=== PATIENT | male | born 1985 | race Caucasian/White ===

== ENCOUNTER 2021-03-28 13:42 | Emergency (ER) | payer OTHER ==
[~2021-03-28] VITALS: Ht 182.9 cm; Wt 127.0 kg
[2021-03-28 13:48] VITALS: BP_SYST 157
[2021-03-28] MEDS ORDERED: LIDOCAINE 1% 10 MG/ML, 20 ML MDV INJ ONE (14:15)
[2021-03-28] MEDS ORDERED: DIPH-TET-PERTUS Vaccine 0.5 ML VIAL (ADACEL) I.M. ONE (14:15)
[2021-03-28] MEDS ORDERED: CEPH500C2 PO (14:48)
[2021-03-28] MEDS ORDERED: BACITRACIN 1 GM OINT TP ONE (14:53)
[2021-03-28] MEDS ORDERED: IBUPROFEN 600 MG TABLET PO ONE (15:15)
[2021-03-28 15:26] VITALS: BP_SYST 148
== END 2021-03-28 15:26 | disposition home or self-care (01) ==
LOC: SED 13:42
DX: S61.412A Laceration without foreign body of left hand, initial encounter (principal); Z88.0 Allergy status to penicillin; Z79.899 Other long term (current) drug therapy; W45.8XXA Other foreign body or object entering through skin, initial encounter; Y93.89 Activity, other specified; Y92.89 Other specified places as the place of occurrence of the external cause; Y99.0 Civilian activity done for income or pay
CPT/HCPCS: 90715; 99283

== ENCOUNTER 2021-03-31 12:44 | Emergency (ER) | payer OTHER ==
[~2021-03-31] VITALS: Ht 182.9 cm; Wt 127.0 kg
[~2021-03-31 12:44] MED LIST: CEPH500C2 PO
[2021-03-31 13:03] VITALS: BP_SYST 158
--- NOTE | 2021-03-31 13:08 | NUR ---
Bushra aguilar in EDM - 03/31/21 at 1312 by [email or web address] Pt brought by self, A&Ox4, pt presents to ER for wound check on L leg after sutures placed 2 days ago, pt afebrile, skin pink and warm, cap refill <3.
--- NOTE | 2021-03-31 13:10 | NUR ---
Patient to ER bed H1 to gown for evaluation. Side rails up.
--- NOTE | 2021-03-31 13:12 | NUR ---
Pt brought by self, A&Ox4, pt presents to ER for wound check on L leg after sutures placed 2 days ago, pt afebrile, skin pink and warm, cap refill <3.
--- NOTE | 2021-03-31 13:30 | NUR ---
Dr Crowe evaluating patient at bedside
[2021-03-31 15:00] VITALS: BP_SYST 148
--- NOTE | 2021-03-31 15:00 | NUR ---
Patient given written and verbal discharge instructions and verbalizes understanding. ER MD discussed with patient the results and treatment provided. Patient in stable condition. ID arm band removed. No Rx given. Patient educated on pain management and to follow up with PMD. Pain Scale 2/10. Opportunity for questions provided and answered. Medication side effect fact sheet provided.
== END 2021-03-31 15:00 | disposition home or self-care (01) ==
LOC: SED 12:44
DX: S61.012D Laceration without foreign body of left thumb without damage to nail, subsequent encounter (principal); S61.211D Laceration without foreign body of left index finger without damage to nail, subsequent encounter; Z88.0 Allergy status to penicillin; Z79.899 Other long term (current) drug therapy; W45.8XXD Other foreign body or object entering through skin, subsequent encounter
CPT/HCPCS: 99281